=== PATIENT | male | born 1990 | race Two or more races ===

== ENCOUNTER 2017-02-09 10:37 | Emergency (ER) | payer SELFPAY ==
[~2017-02-09] VITALS: Ht 177.8 cm; Wt 99.8 kg
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
--- NOTE | 2017-02-09 10:55 | NUR ---
DR ISSA AT BEDSIDE FOR EVAL.
[2017-02-09] MEDS ORDERED: IBUPROFEN 600 MG TABLET PO ONE ×2 (11:17→11:30)
--- NOTE | 2017-02-09 11:36 | NUR ---
PT TO RADIOLOGY FOR LUMBAR SPINE AND RT TIB/FIB XRAY VIA GURNEY.
--- NOTE | 2017-02-09 12:58 | NUR ---
PT. VERBALIZED UNDERSTANDING OF AFTERCARE INSTRUCTIONS.Patient discharged to home in stable condition. Written and verbal after care instructions given. Patient verbalizes understanding of instruction.
[2017-02-09 12:59] VITALS: BP 125/80
== END 2017-02-09 13:00 | disposition home or self-care (01) ==
LOC: ER 10:38
DX: M54.5 Low back pain (principal); M79.661 Pain in right lower leg; V89.2XXA Person injured in unspecified motor-vehicle accident, traffic, initial encounter; Y93.89 Activity, other specified; Y92.89 Other specified places as the place of occurrence of the external cause; Y99.9 Unspecified external cause status
CPT/HCPCS: 72100; 73590; 99285; A4606; Z7610